=== PATIENT | male | born 1985 | race Two or more races ===

== ENCOUNTER 2023-12-12 10:11 | Inpatient (IN) | payer OTHER ==
[~2023-12-12] VITALS: Ht 175.3 cm; Wt 96.9 kg
[2023-12-12 12:37] VITALS: BP 129/88; PULSE 79; RESP 18; TEMP 98.3; O2SAT 98
[2023-12-12 13:01] VITALS: BP 129/88; PULSE 79; RESP 18; TEMP 98.3; O2SAT 98
[2023-12-12] MEDS ORDERED: NITROGLYCERIN 0.4 MG SL TAB SL PRN (13:30)
[2023-12-12] MEDS ORDERED: MORPHINE SULFATE INJ 2 MG/ml SYRG IV PRN (13:30)
[2023-12-12] MEDS: INFLUENZA TRIVALENT 2024-2025 0.5 ML INJ IM ONE (13:30)
[2023-12-12] MEDS ORDERED: traMADol HCL 50 MG TAB PO PRN (15:15)
[2023-12-12] MEDS: cefTRIAXone 1GM/50ML D5W 50 ML IV ONE (15:55)
[2023-12-12] MEDS: SODIUM CHLORIDE 0.9% 1,000 ML IV SCH (15:55)
[2023-12-12 16:53] LABS: INR 1.03 (0.9-1.15); Partial Thromboplastin Time 27.4 SEC (24.5-34.5); Prothrombin Time 10.9 sec (9.3-11.8)
[2023-12-12 17:00] VITALS: BP 109/65; PULSE 65; RESP 18; TEMP 98; O2SAT 97
[2023-12-12] MEDS: TAMSULOSIN HYDROCHLORIDE 0.4 MG CAP PO SCH (17:15)
[2023-12-12] MEDS: MANNITOL FTV 25% 12.5 GM/50 ML 50 ML IV ONE (19:30)
[2023-12-12 20:00] VITALS: PULSE 66; RESP 18; O2SAT 96
[2023-12-12 22:13] VITALS: BP 124/57; PULSE 66; RESP 18; TEMP 98.3; O2SAT 96
[2023-12-12] MEDS: MORPHINE SULFATE INJ 2 MG/ml SYRG IV PRN (22:41)
[2023-12-13 05:08] VITALS: BP 102/59; PULSE 71; RESP 18; TEMP 98.1; O2SAT 93
[2023-12-13 06:32] LABS: Alanine Aminotransferase 24 U/L (7-40); Albumin 3.7 g/dL (3.2-4.8); Alkaline Phosphatase 70 U/L (46-116); Anion Gap 6 (5-15); Aspartate Aminotransferase 15 U/L (13-40); BUN/Creatinine Ratio 9.1 (10.0-20.0); Blood Urea Nitrogen 15 mg/dL (9-23); Calcium 9.3 mg/dL (8.7-10.4); Carbon Dioxide 24 mmol/L (20-31); Chloride 111 mmol/L (98-107); Glucose 108 mg/dL (74-106); Magnesium 1.8 mg/dL (1.6-2.6); Potassium 4.1 mmol/L (3.5-5.1); Sodium 141 mmol/L (136-145)
[2023-12-13 06:33] LABS: Bilirubin, Total 0.7 mg/dL (0.2-1.0); Total Protein 5.9 g/dL (5.7-8.2)
[2023-12-13 06:40] LABS: INR 1.07 (0.9-1.15); Partial Thromboplastin Time 26.2 SEC (24.5-34.5); Prothrombin Time 11.3 sec (9.3-11.8)
[2023-12-13 06:58] LABS: Basophils # (auto) 0 10 ^3/uL (0-0.2); Basophils % (auto) 0.1 % (0.0-2.0); Eosinophils # (auto) 0 10 ^3/uL (0-0.8); Eosinophils % (auto) 0.1 % (0.0-7.0); Hemoglobin 13.3 g/dL (13.5-17.5); Lymphocytes # (auto) 1.4 10 ^3/uL (0.4-5.4); Lymphocytes % (auto) 12.7 % (10.0-50.0); Mean Corpuscular Hemoglobin 31.2 pg (28.0-32.0); Mean Corpuscular Hgb Conc. 34.1 g/dL (32.0-36.0); Mean Corpuscular Volume 91.5 fL (80.0-100.0); Monocytes # (auto) 0.7 10 ^3/uL (0-1.3); Monocytes % (auto) 6.4 % (0.0-12.0); Neutrophils % (auto) 80.7 % (37.0-80.0); Platelet Count (auto) 257 10^3/uL (140-450); Red Blood Cells 4.26 10^6/uL (4.5-5.90); Red Cell Distribution Width 13.1 % (11.8-14.3); White Blood Cell 11.1 10^3/uL (4.4-10.8)
[2023-12-13] MEDS: cefTRIAXone 1GM/50ML D5W 50 ML IV SCH (08:10)
[2023-12-13 09:00] VITALS: BP 109/61; PULSE 63; RESP 18; TEMP 98.1; O2SAT 100
[2023-12-13 13:00] VITALS: BP 103/57; PULSE 63; RESP 18; TEMP 98; O2SAT 97
[2023-12-13 17:00] VITALS: BP 104/45; PULSE 76; RESP 18; TEMP 98.2; O2SAT 97
[2023-12-13 19:30] VITALS: RESP 16
[2023-12-13 21:00] VITALS: BP 107/62; PULSE 62; RESP 18; TEMP 97.6; O2SAT 99
[2023-12-14 01:00] VITALS: BP 94/48; PULSE 61; RESP 16; TEMP 98.1; O2SAT 98
[2023-12-14 05:00] VITALS: BP 105/48; PULSE 62; RESP 18; TEMP 98.3; O2SAT 98
[2023-12-14 06:14] LABS: Chloride 109 mmol/L (98-107); Potassium 4.1 mmol/L (3.5-5.1); Sodium 143 mmol/L (136-145)
[2023-12-14 06:15] LABS: Anion Gap 5 (5-15); Calcium 9.1 mg/dL (8.7-10.4); Carbon Dioxide 29 mmol/L (20-31)
[2023-12-14 06:20] LABS: BUN/Creatinine Ratio 12.3 (10.0-20.0); Blood Urea Nitrogen 13 mg/dL (9-23); Glucose 96 mg/dL (74-106)
[2023-12-14 08:05] VITALS: PULSE 63; RESP 16; O2SAT 94
[2023-12-14 09:00] VITALS: BP 141/85; PULSE 63; RESP 16; TEMP 98; O2SAT 94
[2023-12-14 09:49] LABS: Urine Bacteria None Seen /hpf (None Seen)
[2023-12-14 09:54] LABS: Urine Blood 2+ /uL (Negative); Urine Protein, UAD Negative (Negative); Urine Urobilinogen Normal (Negative); Urine WBC 2 /hpf (0 - 3)
[2023-12-14 10:02] LABS: Urine Clarity Hazy (Clear); Urine Color Light-Yellow (Yellow)
[2023-12-14 13:00] VITALS: BP 109/64; PULSE 60; RESP 19; TEMP 98.3; O2SAT 96
[2023-12-14 14:43] VITALS: BP 109/69; PULSE 60; RESP 19; TEMP 36.8; O2SAT 96
== END 2023-12-14 15:20 | disposition home or self-care (01) | DRG 694 ==
LOC: EAST 12:37
PROVIDERS: ADMIT Internal Medicine; ATTEND Internal Medicine
DX: N13.2 Hydronephrosis with renal and ureteral calculous obstruction (principal); N17.9 Acute kidney failure, unspecified; Z79.899 Other long term (current) drug therapy
CPT/HCPCS: 36415; 76775; 80048; 80053; 81001; 83735; 85025; 85610; 85730; 87081; G0378